=== PATIENT | female | born 1965 | race Caucasian/White ===

== ENCOUNTER 2018-04-14 17:14 | Inpatient (IN) | payer OTHER ==
[2018-04-14] VITALS (151 sets, daily range): BP systolic 150–169; BP diastolic 84–89; PULSE 75; TEMP 97.1; O2SAT 85–100
[~2018-04-14] VITALS: Ht 175.3 cm; Wt 99.3 kg
[2018-04-14] MEDS ORDERED: IMDUR 30MG30 MG/TAB PO (18:04)
[2018-04-14] MEDS ORDERED: PRINIVIL40 MG PO (18:04)
[2018-04-14] MEDS ORDERED: NORVASC 10MG10 MG PO (18:04)
[2018-04-14] MEDS ORDERED: TOPROL XL 50MG50 MG PO (18:06)
[2018-04-14 18:12] LABS: BASO % 0.4 % (0.0-2.0); EOS # 0.1 (0.0-0.7); EOS % 0.8 % (0-4.0); GRAN # 7.8 (1.4-6.5); GRAN % 79.1 % (42.2-75.2); HEMOGLOBIN 11.5 g/dl (12.5-16.0); LYMPH # 1.5 (1.2-3.4); LYMPH % 15.2 % (20.0-51.0); MEAN CELL VOLUME 81 fl (80.0-100.0); MEAN CORPUSCULAR HEMOGLOBIN 27 pg (27.0-31.0); MEAN CORPUSCULAR HGB CONC 33 g/dl (33.0-37.0); MEAN PLATELET VOLUME 9.6 fl (7.4-10.4); MONO # 0.4 (0.1-0.6); MONO % 4.1 % (1.7-9.3); PLATELET COUNT 284 K/mm3 (130-400); RED BLOOD COUNT 4.32 M/mm3 (4.10-5.30)
[2018-04-14] MEDS ORDERED: LANTUS100 U/ML SQ (18:12)
[2018-04-14] MEDS ORDERED: HUMALOG100 U/ML SQ (18:12)
[2018-04-14 18:14] LABS: HEMATOCRIT 34.8 % (37.0-47.0)
[2018-04-14 18:17] LABS: PROTHROMBIN TIME 10.8 SECONDS (9.7-12.8)
[2018-04-14 18:20] LABS: PARTIAL THROMBOPLASTIN TIME 30.6 SECONDS (26.0-37.0)
[2018-04-14 18:24] LABS: ALBUMIN 3.5 gm/dL (3.5-5.0); BILIRUBIN,TOTAL 0.4 mg/dL (0.0-1.0); CALCIUM 9.3 mg/dL (8.4-10.2); CREATININE, serum 3.38 mg/dL (0.52-1.25); POTASSIUM 3.5 mmol/L (3.4-5.0); TOTAL PROTEIN 6.5 gm/dL (6.4-8.2)
[2018-04-14 18:52] LABS: TROPONIN-I 0.023 ng/mL (0.000-0.034)
[2018-04-14 21:47] LABS: COLLECTION METHOD CLEAN CATCH
[2018-04-14 21:53] LABS: PH 5 (5-8); SQUAMOUS EPITHELIAL 0-2 /hpf; URINE APPEARANCE Clear; URINE BACTERIA None Seen /hpf; URINE BILIRUBIN Negative (NEGATIVE); URINE BLOOD Negative (NEGATIVE); URINE COLOR Yellow; URINE GLUCOSE 3+ (NEGATIVE); URINE KETONE Trace (NEGATIVE); URINE LEUKOCYTE ESTERASE Negative (NEGATIVE); URINE NITRATE Negative (NEGATIVE); URINE PROTEIN(semi-quant) 3+ (NEGATIVE); URINE UROBILINOGEN Negative (NEGATIVE)
[2018-04-14 22:04] LABS: TRICYCLIC ANTIDEPRESS URINE NEGATIVE
[2018-04-15] VITALS (681 sets, daily range): BP systolic 118–154; BP diastolic 68–95; PULSE 66–78; TEMP 97.3–98.6; O2SAT 90–100
[2018-04-15 05:33] LABS: BASO % 0.2 % (0.0-2.0); EOS # 0.1 (0.0-0.7); EOS % 0.6 % (0-4.0); GRAN # 6.7 (1.4-6.5); GRAN % 70.5 % (42.2-75.2); LYMPH # 2.2 (1.2-3.4); LYMPH % 22.8 % (20.0-51.0); MEAN CELL VOLUME 84 fl (80.0-100.0); MEAN CORPUSCULAR HEMOGLOBIN 27 pg (27.0-31.0); MEAN CORPUSCULAR HGB CONC 32 g/dl (33.0-37.0); MEAN PLATELET VOLUME 9.8 fl (7.4-10.4); MONO # 0.5 (0.1-0.6); MONO % 5.5 % (1.7-9.3); PLATELET COUNT 238 K/mm3 (130-400); RED BLOOD COUNT 4.12 M/mm3 (4.10-5.30); REDCELL DISTRIBUTION WIDTH-CV 14.3 % (11.5-14.5)
[2018-04-15 05:34] LABS: HEMATOCRIT 34.6 % (37.0-47.0)
[2018-04-15 05:42] LABS: ALANINE AMINOTRANSFERASE 27 U/L (9-52); ALBUMIN 3.1 gm/dL (3.5-5.0); ALKALINE PHOSPHATASE 111 U/L (50-136); ANION GAP 10 mmol/L (7-16); AST,SGOT 14 U/L (15-37); BILIRUBIN,TOTAL 0.2 mg/dL (0.0-1.0); BLOOD UREA NITROGEN 37 mg/dL (7-17); CALCIUM 8.7 mg/dL (8.4-10.2); CARBON DIOXIDE 25 mmol/L (22-30); CHLORIDE 108 mmol/L (98-107); CHOLESTEROL 152 mg/dL (120-200); CHOLESTEROL RISK RATIO 4.1; CREATININE, serum 3.14 mg/dL (0.52-1.25); GLUCOSE 189 mg/dL (74-106); HDL CHOLESTEROL 37 mg/dL; LDL CHOLESTEROL 79 mg/dL; POTASSIUM 3.6 mmol/L (3.4-5.0); SODIUM 142 mmol/L (137-145); TRIGLYCERIDE 181 mg/dL
[2018-04-15 05:53] LABS: TROPONIN-I < 0.012 ng/mL (0.000-0.034)
[2018-04-16] VITALS (11 sets, daily range): BP systolic 129–192; BP diastolic 58–99; PULSE 66–93; TEMP 98.1–99
[2018-04-16 06:40] LABS: BASO % 0.3 % (0.0-2.0); EOS # 0.2 (0.0-0.7); EOS % 2.6 % (0-4.0); GRAN # 6.3 (1.4-6.5); GRAN % 69.1 % (42.2-75.2); LYMPH # 2.1 (1.2-3.4); LYMPH % 22.7 % (20.0-51.0); MEAN CELL VOLUME 83 fl (80.0-100.0); MEAN CORPUSCULAR HEMOGLOBIN 27 pg (27.0-31.0); MEAN CORPUSCULAR HGB CONC 32 g/dl (33.0-37.0); MEAN PLATELET VOLUME 9.9 fl (7.4-10.4); MONO # 0.4 (0.1-0.6); MONO % 4.9 % (1.7-9.3); PLATELET COUNT 235 K/mm3 (130-400); RED BLOOD COUNT 3.76 M/mm3 (4.10-5.30); REDCELL DISTRIBUTION WIDTH-CV 14.4 % (11.5-14.5)
[2018-04-16 06:45] LABS: HEMATOCRIT 31.2 % (37.0-47.0)
[2018-04-16 07:40] LABS: CALCIUM 8.2 mg/dL (8.4-10.2); CREATININE, serum 2.58 mg/dL (0.52-1.25); POTASSIUM 3.8 mmol/L (3.4-5.0)
[2018-04-17 00:53] VITALS: BP 196/85; PULSE 81; TEMP 98.4
[2018-04-17 03:54] VITALS: BP 180/90; PULSE 87; TEMP 99.2
[2018-04-17 07:13] LABS: BASO % 0.3 % (0.0-2.0); EOS % 0.1 % (0-4.0); GRAN % 81.1 % (42.2-75.2); LYMPH # 1.5 (1.2-3.4); LYMPH % 13.2 % (20.0-51.0); MEAN CELL VOLUME 81 fl (80.0-100.0); MEAN CORPUSCULAR HGB CONC 33 g/dl (33.0-37.0); MEAN PLATELET VOLUME 9.4 fl (7.4-10.4); MONO # 0.5 (0.1-0.6); MONO % 4.3 % (1.7-9.3); PLATELET COUNT 276 K/mm3 (130-400); RED BLOOD COUNT 4.54 M/mm3 (4.10-5.30)
[2018-04-17 07:16] LABS: HEMATOCRIT 36.6 % (37.0-47.0); HEMOGLOBIN 12.1 g/dl (12.5-16.0); MEAN CORPUSCULAR HEMOGLOBIN 27 pg (27.0-31.0)
[2018-04-17 07:33] LABS: CALCIUM 8.8 mg/dL (8.4-10.2); CREATININE, serum 2.44 mg/dL (0.52-1.25); POTASSIUM 3.5 mmol/L (3.4-5.0)
[2018-04-17 08:23] VITALS: BP 196/92; PULSE 85; TEMP 98.9
[2018-04-17] MEDS ORDERED: NORVASC 10MG10 MG PO (11:12)
[2018-04-17] MEDS ORDERED: IMDUR 30MG30 MG/TAB PO (11:12)
[2018-04-17] MEDS ORDERED: TOPROL XL 50MG50 MG PO (11:12)
[2018-04-17] MEDS ORDERED: PRINIVIL40 MG PO (11:13)
[2018-04-17] MEDS ORDERED: ZOFRAN ODT4 MG PO (11:14)
[2018-04-17 11:54] VITALS: BP 190/74; PULSE 86; TEMP 99.1
[2018-04-17] MEDS ORDERED: LANCETS MC (13:32)
[2018-04-17] MEDS ORDERED: FREESTYLE PREC1 EAC5 MC (13:32)
[2018-04-17] MEDS ORDERED: NOVOLOG FLEX100 U/ML SQ (13:32)
[2018-04-17] MEDS ORDERED: GLUCOSE TEST ST1 DEV MC (13:32)
[2018-04-17] MEDS ORDERED: LANTUS SOLOS100 U/ML SQ (13:32)
[2018-04-17] MEDS ORDERED: THE MEDICINE SH1 DE3 MC (13:32)
== END 2018-04-17 14:04 | disposition home or self-care (01) | DRG 305 ==
LOC: COL.ER 17:14 → MEDICAL 20:25 → ICU 20:25 → MEDICAL 04-15 18:06
PROVIDERS: Emergency Medicine; Hospitalist; Internal Medicine; Nurse Practitioner Family
DX: I16.0 Hypertensive urgency (principal); N17.9 Acute kidney failure, unspecified; Q21.1 Atrial septal defect; N18.4 Chronic kidney disease, stage 4 (severe); Z66 Do not resuscitate; I12.9 Hypertensive chronic kidney disease with stage 1 through stage 4 chronic kidney disease, or unspecified chronic kidney disease; E11.65 Type 2 diabetes mellitus with hyperglycemia; E11.22 Type 2 diabetes mellitus with diabetic chronic kidney disease; E11.43 Type 2 diabetes mellitus with diabetic autonomic (poly)neuropathy; K31.84 Gastroparesis; Z91.14 Patient's other noncompliance with medication regimen; Z79.4 Long term (current) use of insulin; D63.1 Anemia in chronic kidney disease; R07.89 Other chest pain
CPT/HCPCS: 99223-AI; 99232-AI; 99239; A9502; J0360; J1644; J1815; J2270; J2405; J2550; J2785; J7030; J7050